=== PATIENT | female | born 1955 | race Caucasian/White ===

== ENCOUNTER 2018-10-12 09:56 | Emergency (ER) | payer MEDICARE ==
[~2018-10-12] VITALS: Ht 170.2 cm; Wt 120.2 kg
--- OUTSIDE RECORDS SUMMARY | 2018-10-12 10:02 | XMS REPORT | Clinical Summary ---
Author Author Admin, FARIHA Organization [facility] Address Unknown Phone Unavailable Allergies, Adverse Reactions, Alerts Allergy Name Reaction Description Start Date Severity Status Provider YEAST (DRY) does not digest well Critical Active Kalyani Elder MORPHINE itching Critical Active Kalyani Elder Conditions or Problems Problem Name Problem Code Onset Date Status Entry Date Provider Comment Standard Description Annotate Problems Unknown Active Medication List Medication Instructions Start Date Stop Date Generic Name NDC Status Provider Patient Instruction MULTIVITAMINS CAPS 1 cap by mouth daily MULTIPLE VITAMIN 24294247943 Active Kalyani Elder Active VITAMIN B-12 500 MCG ORAL TABS 1 tab by mouth daily CYANOCOBALAMIN 19409285627 Active Kalyani Elder Active VITAMIN D3 2000 UNIT ORAL CAPS 1 cap by mouth daily CHOLECALCIFEROL 27725403745 Active Kalyani Elder Active TUMS 500 MG ORAL CHEW 1 by mouth daily CALCIUM CARBONATE ANTACID 83531842081 Active Kalyani Elder Active LORATADINE 10 MG TABS 1 tablet by mouth daily LORATADINE 74698614117 Active Kalyani Elder Active MAGNESIUM OXIDE 400 MG CAPS 1 by mouth daily MAGNESIUM OXIDE 36026302462 Active Kalyani Elder Active PREMARIN 0.625 MG/GM CREA Insert 1gm vaginal every night ESTROGENS, CONJUGATED 93933212446 Active Kalyani Elder Active LEVOTHYROXINE SODIUM 150 MCG TABS 1 pill by mouth daily, for thyroid LEVOTHYROXINE SODIUM 58028151218 Active Kalyani Elder Active OMEPRAZOLE 20 MG CPDR 1 tablet by mouth daily OMEPRAZOLE 24697810318 Active Kalyani Elder Active ZOLMITRIPTAN 5 MG ORAL TBDP 1 tab by mouth every 2 hours for migraine ZOLMITRIPTAN 99098332310 Active Kalyani Elder Active DICYCLOMINE HCL 10 MG CAPS 1 four times a day before meals and bedtime DICYCLOMINE HCL 79495523989 Active Kalyani Elder Active HYDROCODONE-ACETAMINOPHEN 10-325 MG TABS 1 tablet by mouth every 6 hours as needed HYDROCODONE-ACETAMINOPHEN 44459831111 Active Kalyani Nunes Active LYRICA 50 MG ORAL CAPS 1 cap by mouth three times daily PREGABALIN 28098417903 Active Kalyani Nunes Active
--- OUTSIDE RECORDS SUMMARY | 2018-10-12 10:02 | XMS REPORT | Clinical Summary ---
Author Author Admin, E Organization [facility] Address Unknown Phone Unavailable Allergies, Adverse Reactions, Alerts Allergy Name Reaction Description Start Date Severity Status Provider YEAST (DRY) does not digest well Critical Active Kalyani Elder MORPHINE itching Critical Active Kalyani Elder Conditions or Problems Problem Name Problem Code Onset Date Status Entry Date Provider Comment Standard Description Annotate U T I-Recurrent Active Josh Irvin MD Urinary tract infection, site not specified Medication List Medication Instructions Start Date Stop Date Generic Name NDC Status Provider Patient Instruction TRIMETHOPRIM 100 MG ORAL TABS Take one by mouth daily TRIMETHOPRIM [id number] Active Nadege Nobles Active MULTIVITAMINS CAPS 1 cap by mouth daily MULTIPLE VITAMIN 90849962585 Active Kalyani Elder Active VITAMIN B-12 500 MCG ORAL TABS 1 tab by mouth daily CYANOCOBALAMIN 56919567210 Active Kalyani Elder Active VITAMIN D3 2000 UNIT ORAL CAPS 1 cap by mouth daily CHOLECALCIFEROL 19207926637 Active Kalyani Elder Active TUMS 500 MG ORAL CHEW 1 by mouth daily CALCIUM CARBONATE ANTACID 15328938868 Active Kalyani Elder Active LORATADINE 10 MG TABS 1 tablet by mouth daily LORATADINE 26320728836 Active Kalyani Elder Active MAGNESIUM OXIDE 400 MG CAPS 1 by mouth daily MAGNESIUM OXIDE 02350254874 Active Kalyani Elder Active PREMARIN 0.625 MG/GM CREA Insert 1gm vaginal every night ESTROGENS, CONJUGATED 98687073082 Active Kalyani Elder Active LEVOTHYROXINE SODIUM 150 MCG TABS 1 pill by mouth daily, for thyroid LEVOTHYROXINE SODIUM 46297358703 Active Kalyani Elder Active OMEPRAZOLE 20 MG CPDR 1 tablet by mouth daily OMEPRAZOLE 41843084992 Active Kalyani Elder Active ZOLMITRIPTAN 5 MG ORAL TBDP 1 tab by mouth every 2 hours for migraine ZOLMITRIPTAN 41748668038 Active Kalyani Elder Active DICYCLOMINE HCL 10 MG CAPS 1 four times a day before meals and bedtime DICYCLOMINE HCL 66388233737 Active Kalyani Elder Active HYDROCODONE-ACETAMINOPHEN 10-325 MG TABS 1 tablet by mouth every 6 hours as needed HYDROCODONE-ACETAMINOPHEN 29147853377 Active Kalyani Elder Active LYRICA 50 MG ORAL CAPS 1 cap by mouth three times daily PREGABALIN 42567368350 Active Kalyani Elder Active Advance Directives Directive Description Start Date PERMISSION TO SHARE Vital Signs Date Name Value Unit Range Description blood pressure, diastolic - 8462-4 70 mm[Hg] BP chand blood pressure, systolic - 8480-6 120 mm[Hg] BP sys height E&M - 8302-2 67 [in_us] Bdy height pulse rate E&M - 8867-4 72 /min Heart rate temperature E&M 98.5 [degF] Body temperature weight E&M - 3141-9 256 [lb_av] Weight Measured Encounters Code Encounter Date Provider Facility CPT-59237 Level 3 New Patient 14:39:23 POULTRY PACKER Josh Irvin MD [facility] Procedures Code Procedure Name Date Entry Date Standard Description CPT-73994 Urine Dip (Floor Use Only) 14:39:23 POULTRY PACKER CPT-47634 Bladder Scan 14:39:23 POULTRY PACKER
--- OUTSIDE RECORDS SUMMARY | 2018-10-12 10:03 | XMS REPORT | Clinical Summary ---
Author Author Admin, E Organization [facility] Address Unknown Phone Unavailable Allergies, Adverse Reactions, [...] 1 cap by mouth daily MULTIPLE VITAMIN 09665518592 Active Kalyani Elder Active VITAMIN B-12 500 MCG ORAL TABS 1 tab by mouth daily CYANOCOBALAMIN 18973678384 Active Kalyani Elder Active VITAMIN D3 2000 UNIT ORAL CAPS 1 cap by mouth daily CHOLECALCIFEROL 70295942792 Active Kalyani Elder Active TUMS 500 MG ORAL CHEW 1 by mouth daily CALCIUM CARBONATE ANTACID 02606871402 Active Kalyani Elder Active LORATADINE 10 MG TABS 1 tablet by mouth daily LORATADINE 97237645601 Active Kalyani Elder Active MAGNESIUM OXIDE 400 MG CAPS 1 by mouth daily MAGNESIUM OXIDE 80284617084 Active Kalyani Elder Active PREMARIN 0.625 MG/GM CREA Insert 1gm vaginal every night ESTROGENS, CONJUGATED 61672451813 Active Kalyani Elder Active LEVOTHYROXINE SODIUM 150 MCG TABS 1 pill by mouth daily, for thyroid LEVOTHYROXINE SODIUM 20287654686 Active Kalyani Elder Active OMEPRAZOLE 20 MG CPDR 1 tablet by mouth daily OMEPRAZOLE 93187569887 Active Kalyani Elder Active ZOLMITRIPTAN 5 MG ORAL TBDP 1 tab by mouth every 2 hours for migraine ZOLMITRIPTAN 11275290066 Active Kalyani Elder Active DICYCLOMINE HCL 10 MG CAPS 1 four times a day before meals and bedtime DICYCLOMINE HCL 54816338410 Active Kalyani Elder Active HYDROCODONE-ACETAMINOPHEN 10-325 MG TABS 1 tablet by mouth every 6 hours as needed HYDROCODONE-ACETAMINOPHEN 36482842452 Active Kalyani Elder Active LYRICA 50 MG ORAL CAPS 1 cap by mouth three times daily PREGABALIN 17629457850 Active Kalyani Elder Active Advance Directives Directive Description Start Date PERMISSION TO SHARE Encounters Code Encounter Date Provider Facility CPT-64308 Level 3 New Patient 14:39:23 WAYS OPERATOR Josh Irvin MD [facility] Procedures Code Procedure Name Date Entry Date Standard Description CPT-15225 Urine Dip (Floor Use Only) 14:39:23 WAYS OPERATOR CPT-78577 Bladder Scan 14:39:23 WAYS OPERATOR
--- OUTSIDE RECORDS SUMMARY | 2018-10-12 10:03 | XMS REPORT | Clinical Summary ---
Author Author Admin, E Organization [facility] Address Unknown Phone Unavailable Allergies, Adverse [...] 1 cap by mouth daily MULTIPLE VITAMIN 62560259888 Active Kalyani Elder Active VITAMIN B-12 500 MCG ORAL TABS 1 tab by mouth daily CYANOCOBALAMIN 21817911365 Active Kalyani Elder Active VITAMIN D3 2000 UNIT ORAL CAPS 1 cap by mouth daily CHOLECALCIFEROL 56295593627 Active Kalyani Elder Active TUMS 500 MG ORAL CHEW 1 by mouth daily CALCIUM CARBONATE ANTACID 73185935912 Active Kalyani Elder Active LORATADINE 10 MG TABS 1 tablet by mouth daily LORATADINE 64508125393 Active Kalyani Elder Active MAGNESIUM OXIDE 400 MG CAPS 1 by mouth daily MAGNESIUM OXIDE 87961571216 Active Kalyani Elder Active PREMARIN 0.625 MG/GM CREA Insert 1gm vaginal every night ESTROGENS, CONJUGATED 19225342629 Active Kalyani Elder Active LEVOTHYROXINE SODIUM 150 MCG TABS 1 pill by mouth daily, for thyroid LEVOTHYROXINE SODIUM 94733988772 Active Kalyani Elder Active OMEPRAZOLE 20 MG CPDR 1 tablet by mouth daily OMEPRAZOLE 15263402050 Active Kalyani Elder Active ZOLMITRIPTAN 5 MG ORAL TBDP 1 tab by mouth every 2 hours for migraine ZOLMITRIPTAN 28066279272 Active Kalyani Elder Active DICYCLOMINE HCL 10 MG CAPS 1 four times a day before meals and bedtime DICYCLOMINE HCL 19364690108 Active Kalyani Elder Active HYDROCODONE-ACETAMINOPHEN 10-325 MG TABS 1 tablet by mouth every 6 hours as needed HYDROCODONE-ACETAMINOPHEN 87035031316 Active Kalyani Elder Active LYRICA 50 MG ORAL CAPS 1 cap by mouth three times daily PREGABALIN 27004525586 Active Kalyani Elder Active Advance Directives Directive [...] Measured Encounters Code Encounter Date Provider Facility CPT-96497 Level 3 New Patient 14:39:23 JR. SYSTEMS ADMINISTRATOR Josh Irvin MD [facility] Procedures Code Procedure Name Date Entry Date Standard Description CPT-95292 Urine Dip (Floor Use Only) 14:39:23 JR. SYSTEMS ADMINISTRATOR CPT-61084 Bladder Scan 14:39:23 JR. SYSTEMS ADMINISTRATOR
--- OUTSIDE RECORDS SUMMARY | 2018-10-12 10:03 | XMS REPORT | Continuity of Care Document ---
Author Author [facility] Organization [facility] Address Unknown Phone Unavailable Allergies There is no data. Medications There is no data. Problems There is no data. Procedures There is no data. Results There is no data. Encounters ACCT No. Visit Date/Time Discharge Status Pt. Type Provider Facility Loc./Unit Complaint [id number] 08/01/2017 20:01:01 [facility] Unknown [id number] 01/25/2017 15:17:56 [facility] Document Registration [id number] 10/05/2018 10:45:00 10/05/2018 23:59:59 [facility] Outpatient [facility]
[2018-10-12 10:15] VITALS: BP 154/96
--- NOTE | 2018-10-12 10:37 | Diagnostic Imaging Report ---
PROCEDURE: CT head without contrast, r/o stroke. TECHNIQUE: Multiple contiguous axial images were obtained through the brain without the use of intravenous contrast. INDICATION: Facial droop. COMPARISON: No prior examination are available for comparison. FINDINGS: There is mild prominence of the ventricles and sulci. There is some chronic microvascular ischemic disease. There is a focal area of encephalomalacia in the left frontal lobe, compatible with a prior CVA. There is no hydrocephalus or midline shift. No intracranial mass, hemorrhage, or extra-axial fluid collection. The calvarium is intact. The sinuses and mastoid air cells are clear. IMPRESSION: Atrophy and some chronic microvascular ischemic disease with focal left frontal lobe encephalomalacia, likely reflecting a prior CVA. No other acute intracranial abnormality. If high clinical concern for an acute CVA persists, further evaluation with MRI should be considered. Dictated by: Dictated on workstation # [id number]
[2018-10-12 10:47] LABS: HEMOGLOBIN 13.7 G/DL (11.5-16.0); MEAN CORPUSCULAR HEMOGLOBIN 29 PG (25-34); WHITE BLOOD COUNT 8.8 10^3/uL (4.3-11.0)
[2018-10-12 10:48] LABS: BASOPHILS % (AUTO) 1 % (0-10); EOSINOPHILS # (AUTO) 0.1 10^3/uL (0.0-0.3); EOSINOPHILS % (AUTO) 1 % (0-10); HEMATOCRIT 43 % (35-52); LYMPHOCYTES # (AUTO) 2.2 X 10^3 (1.0-4.0); LYMPHOCYTES % (AUTO) 26 % (12-44); MEAN CORPUSCULAR HGB CONC 32 G/DL (32-36); MEAN CORPUSCULAR VOLUME 90 FL (80-99); MEAN PLATELET VOLUME 10.7 FL (7.4-10.4); MONOCYTES # (AUTO) 0.8 X 10^3 (0.0-1.0); MONOCYTES % (AUTO) 9 % (0-12); NEUTROPHILS # (AUTO) 5.6 X 10^3 (1.8-7.8); NEUTROPHILS % (AUTO) 64 % (42-75); PLATELET COUNT 230 10^3/uL (130-400); RED CELL DISTRIBUTION WIDTH 14.6 % (10.0-14.5)
[2018-10-12 10:49] LABS: BASOPHILS # (AUTO) 0.1 10^3/uL (0.0-0.1)
[2018-10-12] MEDS ORDERED: VALA1000 PO (11:01)
[2018-10-12] MEDS ORDERED: PRD20T PO (11:01)
[2018-10-12 11:02] LABS: INR 1.1 (0.8-1.4); PROTHROMBIN TIME PATIENT 13.9 SEC (12.2-14.7)
[2018-10-12 11:11] LABS: BUN/CREATININE RATIO 21; CALCIUM 7.4 MG/DL (8.5-10.1); CARBON DIOXIDE 25 MMOL/L (21-32); CHLORIDE 100 MMOL/L (98-107); CREATININE SERUM 0.77 MG/DL (0.60-1.30); GFR ESTIMATED > 60; GLUCOSE 115 MG/DL (70-105); POTASSIUM 4.4 MMOL/L (3.6-5.0); SODIUM 140 MMOL/L (135-145)
[2018-10-12 11:12] LABS: ALANINE AMINOTRANSFERASE 32 U/L (0-55); ALBUMIN 4.5 GM/DL (3.2-4.5); ALKALINE PHOSPHATASE 107 U/L (40-136); BILIRUBIN,TOTAL 0.3 MG/DL (0.1-1.0); TOTAL PROTEIN 7.4 GM/DL (6.4-8.2)
[2018-10-12] MEDS ORDERED: HYDROcodone/APAP 5 MG/325 MG (LORTAB) TAB PO ONE (11:15)
--- NOTE | 2018-10-12 11:19 | ED Neurological Problem ---
General Chief Complaint: Neuro-Stroke Like Symptoms Stated Complaint: LT SIDE FACIAL DROOP; HEADACHE Nursing Triage Note: Pt reports L side facial droop starting yesterday (10/11) at noon. Pt also reports headache x1 week. Pt saw PCP for headache and was put on antibiotics for ear infection. Nursing Sepsis Screen: No Definite Risk Source: patient History of Present Illness Date Seen by Provider: Oct 12, 2018 Time Seen by Provider: 11:00 Initial Comments 62-year-old female who presents with gradual onset left facial droop, alteration of taste left ear pain. Symptom onset was yesterday around noon. Symptoms gradually progressed to now involve loss of involuntary blink reflex of left eye blurring of left eye. No focal extremity weakness or loss of sensation. No blurred vision,.'s speech her swallowing. Also reports ongoing headache for one week. No fever chills, nausea vomiting or sweats. Timing/Duration: 24 hours Associated Symptoms: No ringing in ears, No slurred speech, No tingling in legs /feet, No trouble walking, No vision changes Allergies and Home Medications Allergies Coded Allergies: morphine (Verified Allergy, Unknown, itching, 10/12/18) Home Medications Prednisone 20 Mg Tab, 60 MG PO DAILY Prescribed by: ROMEO SCHAEFFER on 10/12/18 1101 Valacyclovir HCl 1,000 Mg Tablet, 1,000 MG PO TID Prescribed by: ROMEO SCHAEFFER on 10/12/18 1101 Patient Home Medication List Home Medication List Reviewed: Yes Review of Systems Review of Systems Constitutional: no symptoms reported Eyes: Denies Blindness, Denies Blurred Vision; Other (watering Left eye) Ears, Nose, Mouth, Throat: no symptoms reported Respiratory: no symptoms reported Cardiovascular: no symptoms reported Genitourinary: no symptoms reported Musculoskeletal: no symptoms reported Skin: no symptoms reported, change in hair/nails Psychiatric/Neurological: Emotional Problems Past Fqqsmmq-[id number]-Feuvev Hx Patient Social History Recent Foreign Travel: No Contact w/Someone Who Travel: No Recent Infectious Disease Expo: No Physical Exam Vital Signs Vital Signs - First Documented 10/12/18 10:08 Temp 96.3 Pulse 77 Resp 18 B/P (MAP) 154/96 (115) Pulse Ox 98 O2 Delivery Room Air Capillary Refill : Less Than 3 Seconds Height, Weight, BMI Height: 5'7.00" Weight: 265lbs. oz. 120.709513bw; BMI Method:Actual General Appearance: WD/WN, no apparent distress HEENT: PERRL/EOMI, normal ENT inspection, TMs normal, pharynx normal Neck: non-tender, full range of motion Respiratory: chest non-tender, lungs clear, normal breath sounds Cardiovascular: normal peripheral pulses Gastrointestinal: normal bowel sounds Back: normal inspection Extremities: normal range of motion Neurologic/Psychiatric: no motor/sensory deficits, alert, normal mood/affect, abnormal advanced practice professional II-XII (left facial droop involving forehead, ) Crainal Nerves: normal hearing, normal speech, PERRL; No abnormal eye position , No abnormal gag reflex, No abnormal pupil position, No abnormal speech; facial asymmetry, facial droop, facial paresthesias, facial weakness; No gaze palsy, No hearing deficit (R), No hearing deficit (L), No tongue deviation to R , No tongue deviation to L Coordination/Gait: normal finger to nose Motor/Sensory: no motor deficit, no sensory deficit, no pronator drift Skin: normal color, warm/dry Stroke Onset of Symptoms Date of Onset of Symptoms: Oct 11, 2018 Time of Symptom Onset: 12:00 Onset of Symptoms: Yes NIH Stroke Scale Assessment Select: Post CT Level of Consciousness: 0=Alert (0), Level of Consciousness- Questions: 0=Answers both month/age (0), LOC Commands: 0=Performs both tasks (0) , Visual Askew: 0=No visual loss (0), Facial Movement (Facial Paresis): 2= Partial paralysis (2), Motor Function-Arms Right: 0=No drift (0), Motor Function -Arms Left: 0=No drift (0), Motor Function-Legs Right: 0=No drift (0), Motor Function-Legs Left: 0=No drift (0), Limb Ataxia: 0=Absent (0), Sensory: 0=Normal :no loss (0), Best Language: 0=No aphasia (0), Dysarthria: 0=Normal (0), Extinction & Inattention: 0=No abnormality (0), Total: 2 Stroke Thrombolytic Exclusion Age 18 or Over: No Acute intenal hemorrhage: No History of CVA: No Uncontrolled Coagulation Defec: No Intracranial Hemorrhage: No Severe Hypertension: No GI or Bleed: No Subarachnoid Hemorrhage: No Intracranial Neoplasm/Aneurysm: No Oral Anticoagulants: No Surgery or Trauma: No Puncture of Non-Compressible V: No Recent CPR: No Diabetic Hemorrhagic Retinopat: No Organ Biopsy: No Recent Obstetric Delivery: No Glucose: No Significant Hepatic Dysfunctio: No NIH Stoke Scale >22: No Bacterial Endocarditis: No Pericarditis: No Improving Symptoms: No Platelets: No TPA Contraindication: No IV - TPa Received IV - TPa Procedure Performed?: No Progress/Results/Core Measures Results/Orders Lab Results Laboratory Tests Test 10/12/18 10:30 Range/Units White Blood Count 8.8 4.3-11.0 10^3/uL Red Blood Count 4.76 4.35-5.85 10^6/uL Hemoglobin 13.7 11.5-16.0 G/DL Hematocrit 43 35-52 % Mean Corpuscular Volume 90 80-99 FL Mean Corpuscular Hemoglobin 29 25-34 PG Mean Corpuscular Hemoglobin Concent 32 32-36 G/DL Red Cell Distribution Width 14.6 H 10.0-14.5 % Platelet Count 230 130-400 10^3/uL Mean Platelet Volume 10.7 H 7.4-10.4 FL Neutrophils (%) (Auto) 64 42-75 % Lymphocytes (%) (Auto) 26 12-44 % Monocytes (%) (Auto) 9 0-12 % Eosinophils (%) (Auto) 1 0-10 % Basophils (%) (Auto) 1 0-10 % Neutrophils # (Auto) 5.6 1.8-7.8 X 10^3 Lymphocytes # (Auto) 2.2 1.0-4.0 X 10^3 Monocytes # (Auto) 0.8 0.0-1.0 X 10^3 Eosinophils # (Auto) 0.1 0.0-0.3 10^3/uL Basophils # (Auto) 0.1 0.0-0.1 10^3/uL Prothrombin Time 13.9 12.2-14.7 SEC INR Comment 1.1 0.8-1.4 Activated Partial Thromboplast Time 32 24-35 SEC Sodium Level 140 135-145 MMOL/L Potassium Level 4.4 3.6-5.0 MMOL/L Chloride Level 100 98-107 MMOL/L Carbon Dioxide Level 25 21-32 MMOL/L Anion Gap 15 H 5-14 MMOL/L Blood Urea Nitrogen 16 7-18 MG/DL Creatinine 0.77 0.60-1.30 MG/DL Estimat Glomerular Filtration Rate > 60 BUN/Creatinine Ratio 21 Glucose Level 115 H 70-105 MG/DL Calcium Level 7.4 L 8.5-10.1 MG/DL Corrected Calcium 7.0 L 8.5-10.1 MG/DL Total Bilirubin 0.3 0.1-1.0 MG/DL Aspartate Amino Transf (AST/SGOT) 30 5-34 U/L Alanine Aminotransferase (ALT/SGPT) 32 0-55 U/L Alkaline Phosphatase 107 40-136 U/L Total Protein 7.4 6.4-8.2 GM/DL Albumin 4.5 3.2-4.5 GM/DL My Orders Orders - ROMEO SCHAEFFER DO Cbc With Automated Diff (10/12/18 10:04) Comprehensive Metabolic Panel (10/12/18 10:04) Ekg Tracing (10/12/18 10:04) Protime With Inr (10/12/18 10:04) Partial Thromboplastin Time (10/12/18 10:04) Ct Head Wo-R/O Stroke (10/12/18 10:16) Hydrocodone/Apap 5/325 Tablet (Lortab 5 (10/12/18 11:15) Vital Signs/I&O 10/12/18 10:08 Temp 96.3 Pulse 77 Resp 18 B/P (MAP) 154/96 (115) Pulse Ox 98 O2 Delivery Room Air Blood Pressure Mean: 115 Progress Progress Note : Time: 11:23 Progress Note Symptoms, history and exam consistent with Archibald's palsy. CT, lab work otherwise nondiagnostic. Recommend care withthe follow-up. Initial ECG Impression Date: Oct 12, 2018 Initial ECG Impression Time: 10:34 (Normal sinus rhythm, rate 74, no acute ST- T wave changes) Initial ECG Impression: Normal Diagnostic Imaging Diagonstic Imaging: CT (no acute findings per radiology report) Departure Impression Primary Impression: Archibald's palsy Disposition: 01 HOME, SELF-CARE Condition: Improved Departure-Patient Inst. Patient Instructions: Archibald's Palsy (DC) Scripts Valacyclovir HCl (Valacyclovir) 1,000 Mg Tablet 1000 MG PO TID for 10 Days, TAB Prov: ROMEO SCHAEFFER DO 10/12/18 Prednisone (Prednisone) 20 Mg Tab 60 MG PO DAILY, #7 TAB 0 Refills Prov: ROMEO SCHAEFFER DO 10/12/18 ROMEO SCHAEFFER DO Oct 12, 2018 11:19
[2018-10-12 11:25] VITALS: BP 137/69
== END 2018-10-12 11:25 | disposition home or self-care (01) ==
LOC: EDUNIT# 09:56 → ER FS 09:59
DX: G51.0 Bell's palsy (principal); Z88.5 Allergy status to narcotic agent; Z79.52 Long term (current) use of systemic steroids
CPT/HCPCS: 36415; 70450; 80053; 85025; 85610; 85730; 93005

== ENCOUNTER → 2018-11-27 | Outpatient (CLI) | payer MEDICARE ==
[~2018-11-27] MED LIST: GADOBUTROL 10 MMOL/10 ML (GADAVIST) VIAL IV ONE; PRD20T PO; VALA1000 PO
--- NOTE | 2018-11-27 11:37 | Diagnostic Imaging Report ---
CLINICAL INDICATION: Patient with left-sided facial paralysis that last for a short time. Rule out stroke. EXAM: MRI of the brain performed without and with 10 cc of Gadavist IV contrast. Sequences include axial DWI, ADC map, axial gradient echo, axial T2, axial FLAIR, axial T1, axial T1 post IV contrast, coronal T1 fat-sat post IV contrast, and sagittal T1 post IV contrast. COMPARISON: Head CT without contrast dated 10/12/2018. FINDINGS: There is no evidence of acute cerebral infarct, intracranial hemorrhage, or gross mass effect. There is no abnormal IV contrast enhancement. The brain parenchymal volume appears appropriate for patient's age. There is a small chronic cerebral infarct involving the posterior left frontal lobe scott radiata/centrum semiovale region with suspected cystic encephalomalacia. There are multiple focal, patchy and mildly confluent areas of high T2 signal white matter changes seen throughout both cerebral hemispheres, periventricular regions, and jones, likely representing chronic small vessel ischemic disease and leukoaraiosis. There is normal nieves-white matter distinction. There is no significant midline shift or herniation. The deering of Fierro vascular structures show no gross abnormality as visualized. The pituitary gland, sella, and suprasellar regions are unremarkable as visualized. There is no evidence of hydrocephalus. The basal cisterns are unremarkable. The skull, extracranial soft tissue, and orbits are unremarkable. The paranasal sinuses are unremarkable. Temporal bones show no significant abnormality. IMPRESSION: 1: There is no evidence of acute cerebral infarction, intracranial hemorrhage, hydrocephalus, or abnormal IV contrast enhancement. 2: There is a small chronic cerebral infarct involving the posterior left frontal lobe. 3: Chronic small vessel ischemic disease and leukoaraiosis. Dictated by: Dictated on workstation # [id number]
--- NOTE | 2018-11-27 14:59 | Diagnostic Imaging Report ---
PROCEDURE: US carotid duplex, bilateral. TECHNIQUE: Multiple real-time grayscale images were obtained over the carotid arteries in various projections, bilaterally. Additional spectral analysis and color Doppler duplex images were also obtained. INDICATION: Archibald's palsy. COMPARISON: None available. FINDINGS: Right carotid circulation: The right common carotid artery is normal in caliber, and there is no significant stenosis. Peak systolic velocity in the right common carotid artery is 65 cm/sec. There is no atherosclerotic plaque in the carotid bulb and proximal internal carotid artery. The peak systolic velocity in the proximal internal carotid artery is 63 cm/sec. Proximal aspect of the external carotid artery is patent with expected high resistance waveforms, and peak systolic velocity of 118 cm/sec. Left carotid circulation: The left common carotid artery is normal in caliber, and there is no significant stenosis. Peak systolic velocity in the left common carotid artery is 83 cm/sec. There is no atherosclerotic plaque in the carotid bulb and proximal internal carotid artery. The peak systolic velocity in the proximal internal carotid artery is 103 cm/sec. Proximal aspect of the external carotid artery is patent with expected high resistance waveforms, and peak systolic velocity of 79 cm/sec. Vertebral arteries: Flow in the bilateral vertebral arteries is antegrade. IMPRESSION: 1. Normal bilateral internal carotid arteries. 2. Patent vertebral arteries with normal direction of flow. Parameters based on the consensus panel King-Scale and Doppler ultrasound criteria published June 2003, Radiology, Volume 229. Dictated by: Dictated on workstation # [id number]
== END ==
LOC: RAD 10:15
PROVIDERS: ATTEND Family Medicine
DX: I63.89 Other cerebral infarction (principal); I67.82 Cerebral ischemia; I67.81 Acute cerebrovascular insufficiency; G51.0 Bell's palsy
CPT/HCPCS: 70553; 93306; 93880

== ENCOUNTER → 2020-09-05 | Outpatient (CLI) | payer MEDICARE, OTHER ==
[~2020-09-05] MED LIST changes: -GADOBUTROL 10 MMOL/10 ML (GADAVIST) VIAL IV ONE; -VALA1000 PO; +VALA10007 PO
--- NOTE | 2020-09-05 11:50 | Diagnostic Imaging Report ---
INDICATION: Left shoulder pain 3 views of left shoulder show no fracture, dislocation or other acute abnormalities. IMPRESSION: Negative left shoulder. Dictated by: Dictated on workstation # [id number]
== END ==
LOC: RAD FS 10:16
PROVIDERS: ATTEND Family Medicine
DX: M25.512 Pain in left shoulder (principal)
CPT/HCPCS: 73030

== ENCOUNTER → 2023-05-01 | Outpatient (CLI) | payer MEDICARE, OTHER | LOC: CARD 10:45 | PROVIDERS: ATTEND Family Medicine | DX: I51.7 Cardiomegaly (principal); I34.81 Nonrheumatic mitral (valve) annulus calcification; R53.83 Other fatigue | CPT/HCPCS: 93306 ==